=== PATIENT | female | born 1985 | race Caucasian/White ===

== ENCOUNTER 2016-10-20 19:42 | Emergency (ER) | payer OTHER ==
[~2016-10-20] VITALS: Ht 170.2 cm; Wt 43.1 kg
[~2016-10-20 19:42] MED LIST: CIPROFLOXACIN500 M1 PO; CLORAZEPATE GT; DEPAKENE250 MG/5 M GT; FOSAMAX70 MG GT; LEVAQUIN500 MG PO; PHENERGAN/CODEIN5 ML PO; [UNRECOGNIZED DRUG - OTHER]
[2016-10-20 20:23] VITALS: BP 106/86
--- NOTE | 2016-10-20 21:00 | NUR ---
PATIENT TO ER BED 7
--- NOTE | 2016-10-20 21:29 | NUR ---
31Y/F BIB MOTHER TO ED [facility] C/O N/V X1. MOTHER STATES PATIENT HAD EPISODE OF VOMITTING X 1 LAST HOUR, NO DIARRHEA NOR FEVER. PATIENT ALERT, RELAYED METAL STATUS. UNABLE TO AMBULATE, TRANSFER VIA W/C. SKIN WARM AND DRY, ON GT TUBE FOR FEEDING, COFFEE GROUND LEAKING AROUND STOMA NOTED. RESPIRATIONS ROOM AIR, EVEN AND UNLABORED. VSS, NO S/SX OF DISTRESS NOTED. NO C/O PAIN AND DISCOMFORT AT THIS TIME. ER MD MADE AWARE OF PATIENT STATUS.
--- NOTE | 2016-10-20 21:42 | NUR ---
Patient being evaluated by physician at bedside.
--- NOTE | 2016-10-21 00:48 | NUR ---
Patient discharged with v/s stable. Written and verbal after care instructions given and explained. Patient alert, oriented and verbalized understanding of instructions. Wheel Chair Assisted with by parent. All questions addressed prior to discharge. ID band removed. Patient advised to follow up with PMD. Rx of PEPSID 20 MG, ZOFRAN 4 MG given. Patient educated on indication of medication including possible reaction and side effects. Opportunity to ask questions provided and answered.
[2016-10-21 00:55] VITALS: BP 110/85
== END 2016-10-21 00:48 | disposition home or self-care (01) ==
LOC: MED 19:42
DX: K56.7 Ileus, unspecified (principal); G80.9 Cerebral palsy, unspecified; K59.00 Constipation, unspecified; J45.909 Unspecified asthma, uncomplicated; K21.9 Gastro-esophageal reflux disease without esophagitis; Z88.0 Allergy status to penicillin; Z88.8 Allergy status to other drugs, medicaments and biological substances; Z91.048 Other nonmedicinal substance allergy status
CPT/HCPCS: 36415; 74241; 80053; 81001; 81025; 83690; 85025; 85610; 85730; 99285; Q0092

== ENCOUNTER 2016-12-01 07:16 | Day surgery (SDC) | payer OTHER ==
[~2016-12-01] VITALS: Ht 170.2 cm; Wt 43.1 kg
[2016-12-01] MEDS ORDERED: CLINDAMYCIN 600 MG in DEXTROSE 5% 50 ML IV ONE (07:55)
[2016-12-01] MEDS ORDERED: RANITIDINE15 MG/M1 PO (08:11)
[2016-12-01] MEDS ORDERED: JEVITY CAL PO (08:11)
[2016-12-01] MEDS ORDERED: PROPOFOL 200 MG/20 ML VIAL IV ONE (09:22)
[2016-12-01] MEDS ORDERED: ONDANSETRON 4 MG/2 ML VIAL IVP PRN (09:50)
[2016-12-01] MEDS ORDERED: HYDROmorphone 1 MG/ML AMP IVP PRN (09:50)
== END 2016-12-01 12:45 | disposition home or self-care (01) ==
LOC: MDS 07:16 → MMU 07:16 → MDS 12:45
PROVIDERS: ATTEND Internal Medicine Gastroenterology
PROC: 0DH63UZ Insertion of Feeding Device into Stomach, Percutaneous Approach (ICD-10-PCS; principal; 2016-12-01 09:00)
DX: K94.23 Gastrostomy malfunction (principal); K29.90 Gastroduodenitis, unspecified, without bleeding; G80.9 Cerebral palsy, unspecified; J18.9 Pneumonia, unspecified organism; R56.9 Unspecified convulsions; K21.9 Gastro-esophageal reflux disease without esophagitis; J45.909 Unspecified asthma, uncomplicated
CPT/HCPCS: 36415; 43239; 43760; 71010; 80053; 85025; 86677; J2704; J3490; J7030; J7060; J7120

== ENCOUNTER 2016-12-19 14:17 | Emergency (ER) | payer OTHER ==
[~2016-12-19] VITALS: Ht 170.2 cm; Wt 43.1 kg
[~2016-12-19 14:17] MED LIST changes: -CIPROFLOXACIN500 M1 PO; -CLORAZEPATE GT; -DEPAKENE250 MG/5 M GT; -FOSAMAX70 MG GT; -LEVAQUIN500 MG PO; -PHENERGAN/CODEIN5 ML PO; +RANI15SY2 PO; +VALP250S2 GT; +[UNRECOGNIZED DRUG - CODE] GT; +[UNRECOGNIZED DRUG - CODE] PO; -[UNRECOGNIZED DRUG - OTHER]
[2016-12-19 15:00] VITALS: BP 110/74
--- NOTE | 2016-12-19 18:03 | NUR ---
PATIENT TAKEN TO BED #5
--- NOTE | 2016-12-19 18:08 | NUR ---
PT CAME TO ER DUE TO ABDOMINAL DISTENTION, MOTHER GAVE ENEMA THIS MANAGER CARGO , WITH GAS, PER MOTHER VISITING NURSE AT HOME CANONT GIVE FEEDING DUE TO ABDOMINAL DISTENTION, NEW G TUBE WAS PUT BY DR. ROWLEY 3 WEEKS AGO-PER MOTHER NOTED A LOT OF DISCOMFORT WITH NEW GTBRUISE ON LEFT FOOT FROM KICKING;LEFT FOOT IS SLIGHTLY SWOLLEN MOTHER AND VISITING NURSE GAVE TYLENOL AT HOME;DENIES VOMITTING;HX CEREBRAL PALSY, SEIZURE DISORDER,SCOLIOSIS; NO ACUTE DISTRESS NOTED AT THIS TIME; BREATHING IS UNLABORED W/ SYMMETRICAL CHEST EXPANSION;HOB ELEVATED;SAFETY MEASURES DONE;NEEDS ATTENDED;MD MADE AWARE OF PT'S CONDITION;
--- NOTE | 2016-12-19 19:02 | NUR ---
PT LYING ON BED W/ HER MOTHER AT BEDSIDE;NO ACUTE DISTRESS NOTED AT THIS TIME;WILL CONTINUE TO MONITOR PT.
--- NOTE | 2016-12-19 19:29 | NUR ---
Pt report given to RIAZ LI. Transfer of care at this time.
--- NOTE | 2016-12-19 19:36 | NUR ---
Patient being evaluated by DR. ALVARADO at bedside.
[2016-12-19 20:00] VITALS: BP 113/72
--- NOTE | 2016-12-19 20:00 | NUR ---
Patient discharged with v/s stable BY DR. ALVARADO. Written and verbal after care instructions given and explained. Patient verbalized understanding. Wheel Chair Assisted with to car. All questions addressed prior to discharge. Advised to follow up with PMD.
== END 2016-12-19 20:00 | disposition home or self-care (01) ==
LOC: MED 14:17
DX: K94.23 Gastrostomy malfunction (principal); J45.909 Unspecified asthma, uncomplicated; K21.9 Gastro-esophageal reflux disease without esophagitis; Z88.0 Allergy status to penicillin; Z88.2 Allergy status to sulfonamides; Z88.8 Allergy status to other drugs, medicaments and biological substances; Z79.899 Other long term (current) drug therapy
CPT/HCPCS: 74241; 99284; Q0092